=== PATIENT | male | born 1950 | race Caucasian/White ===

== ENCOUNTER 2018-05-26 17:36 | Emergency (ER) | payer MEDICARE, OTHER ==
--- NOTE | 2018-05-26 17:41 | ED Physician Documentation ---
General Adult - HISTORIAN Historian: patient - HPI Stated Complaint: pain in left upper leg/back for several days Chief Complaint: Low Back Pain/ Injury Onset: days ago (several days ) Timing: still present Severity: mild Further Comments: yes (He states a few months ago in last snow he did fall but does not recall pain after that. He states a few days ago he started to have pain in his lower back/and hip or leg he cannot decide. He has tried OTC meds and a patch he even tried his dads oxana and this did not help. He has no loss of sensation. He is walking . He worked today. He has no loss of control of bowel or bladder) - ROS CONST: no problems EYES/ENT: none CVS/RESP: none GI/: none MS/SKIN/LYMPH: none NEURO/PSYCH: headache - PAST HX Past History: none Allergies/Adverse Reactions: Allergies Allergy/AdvReac Type Severity Reaction Status Date / Time No Known Allergies Allergy Verified 05/26/18 19:07 Home Medications: Ambulatory Orders Medication Instructions Recorded Naproxen [Naprosyn] 1 tab PO DAILY 05/26/18 - SOCIAL HX Smoking History: cigarettes Alcohol Use: none Drug Use: none - FAMILY HX Family History: Yes - REVIEWED ASSESSMENTS Nursing Assessment Reviewed: Yes Vitals Reviewed: Yes Progress - Progress Progress: 0: refusing pain meds until he knows what is wrong DG 2014: Discussed results and he is requesting no IM pain med rather would like oral pain meds ED Results Lab/Radiology - Radiology Radiology Impressions: EXAMINATION: PELVIS AP 1 OR 2 VIEWS HISTORY: LEFT GROIN PAIN X 2 DAYS, NO KNOWN INJURY (Hx) COMPARISON: None FINDINGS: No acute fracture is identified. The femoral heads appear well-seated within their respective acetabula. There is moderate hip osteoarthritis bilaterally. Soft tissue calcifications are noted adjacent to both hips, left greater than right. The pubic symphysis is intact. The sacroiliac joints appear normal. The bones are mildly diffusely demineralized. The IMPRESSION: 1. No acute fracture identified. 2. Moderate hip osteoarthritis. Electronically signed on May 26, 2018 8:07:28 PM CDT by: Ty Salazar EXAMINATION: L SPINE 2 OR 3 VIEWS HISTORY: LEFT GROIN PAIN X 2 DAYS, NO KNOWN INJURY (Hx) COMPARISON: None FINDINGS: There is mild L2/L3 retrolisthesis. No acute fracture or compression deformity is identified. There is advanced multilevel degenerative disc and joint disease. IMPRESSION: 1. No acute fracture or subluxation identified. 2. Advanced lumbar degenerative disc and joint disease. Electronically signed on May 26, 2018 8:08:45 PM CDT by: Ty Salazar EXAMINATION: LT FEMUR 2VIEWS HISTORY: LEFT GROIN PAIN X 2 DAYS, NO KNOWN INJURY (Hx) COMPARISON: None FINDINGS: No acute fracture is identified. No soft tissue swelling is seen. There is knee chondrocalcinosis. IMPRESSION: No acute fracture identified. Electronically signed on May 26, 2018 8:09:16 PM CDT by: Ty Salazar General Adult Physical Exam - PHYSICAL EXAM GENERAL APPEARANCE: mild distress EENT: eye inspection normal, no signs of dehydration NECK: normal inspection RESPIRATORY: no resp distress CVS: reg rate & rhythm, heart sounds normal ABDOMEN: soft, normal bowel sounds BACK: normal inspection, other (tenderness mildly with palpation lumbar spine - no obvious injury ) SKIN: warm/dry, normal color EXTREMITIES: normal range of motion, no evidence of injury, no edema, tenderness (to touch left hip and pelvis area with touch - pulses + and sensation + ) NEURO: oriented X3 Discharge Clincal Impression: Left hip pain Referrals: Brenda Taylor MD [Primary Care Provider] - 2 Days Comments: 1. Vicodin take 1 by mouth every 8 hours as needed for pain (strong pain) 2. Ibuprofen 800 mg take 1 by mouth every 12 hours as needed for pain (mild pain) 3. Medrol dose pack - as directed 4. Follow up with PCP for possible MRI 5. Return to ER for any increasing concerns Condition: Stable Disposition: 01 HOME, SELF-CARE Decision to Admit: NO Date of Decison to Admit: 05/26/18 Decision Time: 20:16
[2018-05-26] MEDS: KETOROLAC TROMETHAMINE 60 MG/2 ML VIAL IM ONE (20:19)
[2018-05-26 20:21] VITALS: BP 143/77
[2018-05-26] MEDS: HYDROcodone /APAP 5/325 1 EACH TABLET PO ONE ×2 (20:27→20:53)
[2018-05-26 21:05] LABS: APPEARANCE,URINE CLEAR (CLEAR); COLOR,URINE YELLOW (YELLOW); OCCULT BLOOD,URINE NEGATIVE (NEGATIVE); PH URINE 6.5 (5.0 - 8.0); UROBILINOGEN URINE 0.2 Eu (0.2-1.0)
--- NOTE | 2018-05-27 05:39 | Diagnostic Imaging Report ---
MERY DOW [facility] [address] [facility] [address] [place], [place]. [address] Report Submission Date: May 26, 2018 8:07:28 PM CDT Patient Study Name: DIOGENES GOLDEN Date: May 26, 2018 6:26:47 PM CDT Modality Type: DX Gender: M Description: PELVIS AP 1 OR 2 VIEWS : 54 Institution: [facility] Physician: MERY DOW EXAMINATION: PELVIS AP 1 OR 2 VIEWS HISTORY: LEFT GROIN PAIN X 2 DAYS, NO KNOWN INJURY (Hx) COMPARISON: None FINDINGS: No acute fracture is identified. The femoral heads appear well-seated within their respective acetabula. There is moderate hip osteoarthritis bilaterally. Soft tissue calcifications are noted adjacent to both hips, left greater than right. The pubic symphysis is intact. The sacroiliac joints appear normal. The bones are mildly diffusely demineralized. The IMPRESSION: 1. No acute fracture identified. 2. Moderate hip osteoarthritis. Electronically signed on May 26, 2018 8:07:28 PM CDT by: Ty MCGRATH
--- NOTE | 2018-05-27 05:39 | Diagnostic Imaging Report ---
MERY DOW [facility] [address] [facility] [address] [place], [place]. [address] Report Submission Date: May 26, 2018 8:09:16 PM CDT Patient Study Name: DIOGENES GOLDEN Date: May 26, 2018 6:26:47 PM CDT Modality Type: DX Gender: M Description: LT FEMUR 2VIEWS : 54 Institution: [facility] Physician: MERY DOW EXAMINATION: LT FEMUR 2VIEWS HISTORY: LEFT GROIN PAIN X 2 DAYS, NO KNOWN INJURY (Hx) COMPARISON: None FINDINGS: No acute fracture is identified. No soft tissue swelling is seen. There is knee chondrocalcinosis. IMPRESSION: No acute fracture identified. Electronically signed on May 26, 2018 8:09:16 PM CDT by: Ty MCGRATH
--- NOTE | 2018-05-27 05:39 | Diagnostic Imaging Report ---
MERY DOW [facility] [address] [facility] [address] [place], [place]. [address] Report Submission Date: May 26, 2018 8:08:45 PM CDT Patient Study Name: DIOGENES GOLDEN Date: May 26, 2018 6:26:47 PM CDT Modality Type: DX Gender: M Description: L SPINE 2 OR 3 VIEWS : 54 Institution: [facility] Physician: MERY DOW EXAMINATION: L SPINE 2 OR 3 VIEWS HISTORY: LEFT GROIN PAIN X 2 DAYS, NO KNOWN INJURY (Hx) COMPARISON: None FINDINGS: There is mild L2/L3 retrolisthesis. No acute fracture or compression deformity is identified. There is advanced multilevel degenerative disc and joint disease. IMPRESSION: 1. No acute fracture or subluxation identified. 2. Advanced lumbar degenerative disc and joint disease. Electronically signed on May 26, 2018 8:08:45 PM CDT by: Ty MCGRATH
== END 2018-05-26 20:54 | disposition home or self-care (01) ==
LOC: ED 17:36
DX: M25.552 Pain in left hip (principal); M54.5 Low back pain
CPT/HCPCS: 72100; 72170; 73552; 81002; 99283; 99285; A9270